=== PATIENT | female | born 2000 | race Caucasian/White ===

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

== ENCOUNTER 2020-06-21 10:16 | Emergency (ER) | payer BC, OTHER ==
[2020-06-21] MEDS ORDERED: diphenhydrAMINE 50 MG/ML VIAL ONE (11:47)
[2020-06-21] MEDS ORDERED: Ketorolac Tromethamine 30 MG/ML VIAL ONE (11:47)
[2020-06-21] MEDS ORDERED: Dexamethasone 4 mg/ml Vial ONE (11:47)
[2020-06-21] MEDS ORDERED: Metoclopramide HCl 10 MG/2 ML VIAL ONE (11:47)
[2020-06-21 12:23] LABS: Bilirubin Negative (Negative); Blood, Urine Negative (Negative); Clarity Clear (Clear); Glucose, Urine (Dipstick) Normal (Negative); Ketone, Urine Negative (Negative); Leukocyte 250 Leu/uL (Negative); Nitrite Negative (Negative); Protein, Urine (Dipstick) Negative (Neg-Trace); RBC/HPF 0-3 HPF (0-3); Specific Gravity, Urine 1.004 (1.002-1.036); Urobilinogen Normal mg/dL (Less than 2)
[2020-06-21 12:24] LABS: Bacteria/HPF 1+ HPF (None Seen)
[2020-06-21 12:28] LABS: Hemoglobin 14.3 g/dL (12.0-16.0); Mean Corpuscular HGB CONC 33.5 g/dL (32.0-36.0); Mean Corpuscular Hemoglobin 30.5 pg (27.0-31.0); Mean Platelet Volume 7.6 fL (7.4-10.4); Platelet Count 191 thou/uL (130-400); Red Blood Cell (RBC) Count 4.69 mill/uL (4.20-5.40); White Blood Cell (WBC) Count 6.9 thou/uL (4.8-10.8)
[2020-06-21 12:47] LABS: Band 7 % (5-11); Lymphocytes 48 % (21-51); MDiff Complete? YES; Monocytes 8 % (0-10); Neutrophil 35 % (42-75); Platelet Morphology Comment Appears Adequate; RBC Morphology Normal; Reactive Lymphocytes 2 % (0-10)
[2020-06-21 12:48] LABS: Chloride 100 mmol/L (98-107); Potassium 3.9 mmol/L (3.5-5.1); Sodium 137 mmol/L (136-145)
[2020-06-21 12:49] LABS: Calcium 9.8 mg/dL (7.8-10.44); Glucose 92 mg/dL (70-105)
[2020-06-21 12:50] LABS: Protein, Total 8.2 g/dL (6.0-8.3)
[2020-06-21 12:51] LABS: Anion Gap 16 mmol/L (10-20); Bilirubin, Total 0.8 mg/dL (0.2-1.2); Carbon Dioxide 25 mmol/L (22-29)
[2020-06-21 12:52] LABS: Alkaline Phosphatase 184 U/L (40-110)
[2020-06-21 12:53] LABS: Calc. Creatinine Clearance 0 mL/min (70-130)
[2020-06-21 12:54] LABS: BUN (Urea Nitrogen) 5 mg/dL (7.0-18.7)
[2020-06-21 12:55] LABS: ALT (SGPT) 60 U/L (8-55); AST (SGOT) 55 U/L (5-34)
[2020-06-21 13:22] LABS: Albumin 4.3 g/dL (3.5-5.0); Globulin 3.9 g/dL (2.4-3.5)
== END 2020-06-21 15:31 | disposition home or self-care (01) ==
LOC: ERS 10:16
DX: B27.90 Infectious mononucleosis, unspecified without complication (principal); J02.9 Acute pharyngitis, unspecified; K58.9 Irritable bowel syndrome, unspecified
CPT/HCPCS: 80053; 81003; 81015; 83605; 85025; 87081; 87086; 87430; 96365; 96375; J1100; J1200; J1885; J2765